=== PATIENT | male | born 1990 | race Caucasian/White ===

== ENCOUNTER 2016-12-30 01:07 | Emergency (ER) | payer OTHER, SELFPAY ==
--- NOTE | 2016-12-30 01:12 | EDM.PDOC ---
ED HPI GENERAL MEDICAL PROBLEM - General Stated Complaint: THROWING UP BLOOD Time Seen by Provider: 12/30/16 01:11 Source of Information: Reports: Patient History Limitations: Reports: No Limitations - History of Present Illness INITIAL COMMENTS - FREE TEXT/NARRATIVE: HISTORY AND PHYSICAL: History of present illness: [26-year-old male with a past medical history of frequent alcohol use and abuse now presents emergency department not feeling well and feeling very anxious one day after drinking 20 shots of whiskey. Patient states he hasn't felt well all day and he had some nausea. Since he had nausea and try to make himself vomit by sticking his finger down his throat. Patient then thinks he saw tinge of blood in his vomitus however he did not vomit jennifer blood. He has no history of bleeding doesn't take anticoagulants no history of upper GI bleed. He is very anxious about his medical condition. Patient wasn't feeling well he has an extensive history of anxiety and is not on any antianxiety medication. Because he was worried he looked online and then became more worried with the information that he found. So he came to the emergency department in the middle the night for evaluation. No SI or HI intentional overdose or self injury Review of systems: As per history of present illness and below otherwise all systems reviewed and negative. Past medical history: As per history of present illness and as reviewed below otherwise noncontributory. Surgical history: As per history of present illness and as reviewed below otherwise noncontributory. Social history: No reported history of drug or alcohol abuse. Family history: As per history of present illness and as reviewed below otherwise noncontributory. Physical exam: Well-appearing patient he is clearly anxious. Patient spit up some clear vomit only was here with no blood. Mild tachycardia HEENT: Atraumatic, normocephalic, pupils reactive, negative for conjunctival pallor or scleral icterus, mucous membranes moist, throat clear, neck supple, nontender, trachea midline. Lungs: Clear to auscultation, breath sounds equal bilaterally, chest nontender. Heart: S1S2, regular, negative for clicks, rubs, or JVD. Abdomen: Soft, nondistended, nontender. Negative for masses or hepatosplenomegaly. Negative for costovertebral tenderness. Pelvis: Stable nontender. Genitourinary: Deferred. Rectal: Deferred. Extremities: Atraumatic, negative for cords or calf pain. Neurovascular unremarkable. Neuro: Awake, alert, oriented. Cranial nerves II through XII unremarkable. Cerebellum unremarkable. Motor and sensory unremarkable throughout. Exam nonfocal. Diagnostics: [Chest x-ray unremarkable interpreted by me EKG normal sinus tachycardia at 105. White blood cell count elevated at 13.3 nonspecific Therapeutics: [IV fluids, Protonix, Ativan, Zofran] Impression: [Hangover Anxiety Alcohol abuse Gastritis Leukocytosis] Plan: [Signs and symptoms consistent with hangover and anxiety in the setting of recent heavy alcohol use. Mild tachycardia improved with IV fluids. Tachycardia resolved prior to discharge. patient is a very clearly contributory anxiety component to his presentation.] As are unremarkable except for mildly elevated white blood cell count 13.3 which is nonspecific. Chest x-ray and EKG benign. No further workup or treatment is indicated at this time. Patient agrees with outpatient follow-up. Strict return precautions given Definitive disposition and diagnosis as appropriate pending reevaluation and review of above. abdominal pain Pain Score (Numeric/FACES): 7 - Related Data Allergies Allergy/AdvReac Type Severity Reaction Status Date / Time No Known Allergies Allergy Verified 12/30/16 01:27 Home Meds: Home Meds . [No Known Home Meds] 12/30/16 [History] ED ROS GENERAL - Review of Systems Review Of Systems: See Below (History of present illness) ED EXAM, GENERAL - Physical Exam Exam: See Below (History of present illness) Course - Vital Signs Last Recorded V/S: Last Vital Signs Temp 36.4 C 12/30/16 01:28 Pulse 124 H 12/30/16 01:28 Resp 20 12/30/16 01:28 BP 164/110 H 12/30/16 01:28 Pulse Ox 98 12/30/16 01:28 - Orders/Labs/Meds Orders: Active Orders 24 hr Category Date Time Status EKG Documentation Completion [RC] STAT Care 12/30/16 02:21 Active Chest 1V Frontal [CR] Stat Exams 12/30/16 02:08 Taken Sodium Chloride 0.9% [Normal Saline] 2,000 ml Med 12/30/16 01:50 Active IV .Bolus Sodium Chloride 0.9% [Saline Flush] Med 12/30/16 02:18 Active 10 ml FLUSH ASDIRECTED PRN Sodium Chloride 0.9% [Saline Flush] Med 12/30/16 02:18 Active 2.5 ml FLUSH ASDIRECTED PRN Peripheral IV Insertion Adult [OM.PC] Stat Oth 12/30/16 02:19 Ordered Medication Orders Sodium Chloride (Normal Saline) 2,000 mls @ 999 mls/hr IV .Bolus ONE Stop: 12/30/16 03:50 Last Admin: 12/30/16 02:01 Dose: 999 mls/hr Sodium Chloride (Saline Flush) 10 ml FLUSH ASDIRECTED PRN PRN Reason: Keep Vein Open Last Admin: 12/30/16 02:22 Dose: 10 ml Sodium Chloride (Saline Flush) 2.5 ml FLUSH ASDIRECTED PRN PRN Reason: Keep Vein Open Last Admin: 12/30/16 02:22 Dose: 2.5 ml Labs: Laboratory Tests 12/30/16 12/30/16 12/30/16 Range/Units 01:55 02:00 02:35 WBC 13.31 H (4.0-11.0) K/uL RBC 5.17 (4.50-5.90) M/uL Hgb 15.4 (13.0-17.0) g/dL Hct 44.1 (38.0-50.0) % MCV 85.3 (80.0-98.0) fL MCH 29.8 (27.0-32.0) pg MCHC 34.9 (31.0-37.0) g/dL RDW Std Deviation 41.0 (28.0-62.0) fl RDW Coeff of Josefa 13 (11.0-15.0) % Plt Count 227 (150-400) K/uL MPV 9.70 (7.40-12.00) fL Neut % (Auto) 79.3 (48.0-80.0) % Lymph % (Auto) 14.4 L (16.0-40.0) % Castro % (Auto) 6.1 (0.0-15.0) % Eos % (Auto) 0.0 (0.0-7.0) % Baso % (Auto) 0.2 (0.0-1.5) % Neut # (Auto) 10.6 H (1.4-5.7) K/uL Lymph # (Auto) 1.9 (0.6-2.4) K/uL Castro # (Auto) 0.8 (0.0-0.8) K/uL Eos # (Auto) 0.0 (0.0-0.7) K/uL Baso # (Auto) 0.0 (0.0-0.1) K/uL Nucleated RBC % 0.0 /100WBC Nucleated RBCs # 0 K/uL Sodium 135 L (136-146) mmol/L Potassium 3.5 (3.5-5.1) mmol/L Chloride 99 (98-110) mmol/L Carbon Dioxide 22 (21-31) mmol/L BUN 7 (6.0-23.0) mg/dL Creatinine 0.9 (0.6-1.5) mg/dL Est Cr Clr Drug Dosing TNP Estimated GFR (MDRD) > 60.0 ml/min Glucose 120 H (60-110) mg/dL Calcium 8.9 (8.8-10.8) mg/dL Total Bilirubin 0.9 (0.1-1.5) mg/dL AST 31 (5-40) IU/L ALT 37 (8-54) IU/L Alkaline Phosphatase 67 (40-150) Troponin I < 0.10 (0.0-0.29) NG/ML Total Protein 7.8 (6.0-8.0) g/dL Albumin 4.3 (3.5-5.0) g/dL Globulin 3.5 (2.0-3.5) g/dL Albumin/Globulin Ratio 1.2 L (1.3-2.8) Lipase 14 (7-80) U/L Meds: Medications Generic Name Dose Route Start Last Admin Trade Name Freq PRN Reason Stop Dose Admin Sodium Chloride 2,000 mls @ 999 mls/hr 12/30/16 01:50 12/30/16 02:01 Normal Saline IV 12/30/16 03:50 999 mls/hr .Bolus ONE Administration Sodium Chloride 10 ml 12/30/16 02:18 12/30/16 02:22 Saline Flush FLUSH 10 ml ASDIRECTED PRN Administration Keep Vein Open Sodium Chloride 2.5 ml 12/30/16 02:18 12/30/16 02:22 Saline Flush FLUSH 2.5 ml ASDIRECTED PRN Administration Keep Vein Open Discontinued Medications Generic Name Dose Route Start Last Admin Trade Name Rivera PRN Reason Stop Dose Admin Pantoprazole Sodium 40 mg/ 10 mls @ 300 mls/hr 12/30/16 02:46 12/30/16 02:55 Sodium Chloride IVPUSH 12/30/16 02:47 300 mls/hr NOW ONE Administration Lorazepam 1 mg 12/30/16 02:08 12/30/16 02:20 Ativan IVPUSH 12/30/16 02:09 1 mg ONETIME ONE Administration Lorazepam 1 mg 12/30/16 02:47 12/30/16 02:54 Ativan IVPUSH 12/30/16 02:48 1 mg ONETIME ONE Administration Ondansetron HCl 4 mg 12/30/16 02:39 12/30/16 02:55 Zofran IVPUSH 12/30/16 02:40 4 mg ONETIME ONE Administration Departure - Departure Time of Disposition: 03:48 Disposition: Home, Self-Care 01 Condition: Good Clinical Impression: Alcohol abuse, Anxiety, Leukocytosis, Hangover - Discharge Information Instructions: Alcohol Use Disorder Referrals: PCP,None [Primary Care Provider] - Forms: ED Department Discharge Additional Instructions: It appears that you have symptoms of gastritis. This means irritated/acidic stomach in this case from drinking too much alcohol. Take Prilosec or Protonix [id number] as needed. If you do choose to drink alcohol be aware this may aggravate your gastritis. Your Dr. suffering from a hangover from your severe alcohol intake yesterday. This is also complicated by severe anxiety from which you have suffered for a long time. Rest and drink plenty of fluids Follow-up with your Dr. tomorrow for reevaluation and to discuss whether you might benefit from a prescription control anxiety. Return here for new severe or worsening symptoms - My Orders Last 24 Hours: My Active Orders 12/30/16 01:50 Sodium Chloride 0.9% [Normal Saline] 2,000 ml IV .Bolus 12/30/16 02:08 Chest 1V Frontal [CR] Stat 12/30/16 02:18 Sodium Chloride 0.9% [Saline Flush] 10 ml FLUSH ASDIRECTED PRN Sodium Chloride 0.9% [Saline Flush] 2.5 ml FLUSH ASDIRECTED PRN 12/30/16 02:19 Peripheral IV Insertion Adult [OM.PC] Stat 12/30/16 02:21 EKG Documentation Completion [RC] STAT - Assessment/Plan Last 24 Hours: My Active Orders 12/30/16 01:50 Sodium Chloride 0.9% [Normal Saline] 2,000 ml IV .Bolus 12/30/16 02:08 Chest 1V Frontal [CR] Stat 12/30/16 02:18 Sodium Chloride 0.9% [Saline Flush] 10 ml FLUSH ASDIRECTED PRN Sodium Chloride 0.9% [Saline Flush] 2.5 ml FLUSH ASDIRECTED PRN 12/30/16 02:19 Peripheral IV Insertion Adult [OM.PC] Stat 12/30/16 02:21 EKG Documentation Completion [RC] STAT
[2016-12-30] MEDS ORDERED: Sodium Chloride 0.9% 2,000 ML IV ONE (01:50)
[2016-12-30] MEDS ORDERED: LORazepam 2 MG/ML MDV IVPUSH ONE ×2 (02:08→02:47)
[2016-12-30] MEDS ORDERED: Sodium Chloride 0.9% 2.5 ML Syringe FLUSH PRN (02:18)
[2016-12-30] MEDS ORDERED: Sodium Chloride 0.9% 10 ML Syringe FLUSH PRN (02:18)
[2016-12-30] MEDS ORDERED: Ondansetron 4 MG/2 ML SDV IVPUSH ONE (02:39)
[2016-12-30] MEDS ORDERED: Pantoprazole 40 MG in Sodium Chloride 0.9% 10 ML IVPUSH ONE (02:46)
[2016-12-30 02:59] LABS: CHLORIDE,CL 99 mmol/L (98-110); SODIUM,NA 135 mmol/L (136-146)
[2016-12-30 04:22] VITALS: BP 131/83
--- NOTE | 2016-12-30 15:17 | CR ---
EXAM DATE: 12/30/16 PATIENT'S AGE: 26 Patient: YAHIR HENDERSON Facility: [place], [place] Site . Site : 1990 Study: XRay Chest [id number]/7/2017 2:41:34 AM Ordering Physician: Carlton Mosley Final Report: Indication: Tachycardia Technique: Chest 1 view Comparison: None. Findings/Impression: Cardiovascular and mediastinum: Heart size and vasculature are normal in caliber and appearance. Mediastinum is within normal limits. Lungs and pleural space: Lungs are clear. No sign of infiltrate or mass. No sign of pleural effusion. No pneumothorax. Bones and soft tissues: No significant findings. Dictated by Jaki Beavers MD @ Dec 30 2016 3:12AM (Electronic Signature) Report Signed by Proxy. TOR
== END 2016-12-30 04:15 | disposition home or self-care (01) ==
LOC: MW.ED 01:07
DX: F10.129 Alcohol abuse with intoxication, unspecified (principal); K29.70 Gastritis, unspecified, without bleeding; F41.9 Anxiety disorder, unspecified; D72.829 Elevated white blood cell count, unspecified
CPT/HCPCS: 71010; 80053; 83690; 84484; 85025; 93005; 96361; 96374; 96375; 99284; C9113; J2060; J2405; J7040

== ENCOUNTER 2017-01-01 19:26 | Emergency (ER) | payer OTHER, SELFPAY ==
[2017-01-01] MEDS ORDERED: Acetaminophen 325 MG Tab PO ONE (19:49)
[2017-01-01] MEDS ORDERED: Ketorolac 60 MG/2 ML SDV IM ONE (19:49)
--- NOTE | 2017-01-01 19:55 | EDM.PDOC ---
ED HPI GENERAL MEDICAL PROBLEM - General Chief Complaint: Headache Stated Complaint: MIGRAINE Time Seen by Provider: 01/01/17 19:42 - History of Present Illness INITIAL COMMENTS - FREE TEXT/NARRATIVE: HISTORY AND PHYSICAL: History of present illness: The patient is a 26-year-old male who presents with a three-day history of a diffuse headache with a pressure-like sensation who seeks evaluation for same. The patient says the headache came on gradually and is not associated with a fever chills nausea vomiting or other systemic complaints. He has no neurologic changes in his extremities and denies any recent trauma. The patient is worried about his "brain being swollen" and was on the Internet looking up different things and is concerned about a variety of things that he has read about. The patient denies any neck pain sore throat or ear pain. The patient has not taken any medications [id number] to try to help with his headache. The patient comes in drinking water out of a gallon bottle and says he has been hydrating well. The patient was seen here 2 days ago after he had a drinking binge and presented with vomiting and hangover-like symptoms. The patient says that since that time he has been tolerating fluids and has had only one episode of vomiting since and he felt like his headache got worse with the vomiting. It is waxing and waning in intensity and is not consistent. Review of systems: As per history of present illness and below otherwise all systems reviewed and negative. Past medical history: As per history of present illness and as reviewed below otherwise noncontributory. Surgical history: As per history of present illness and as reviewed below otherwise noncontributory. Social history: No reported history of drug or alcohol abuse. Family history: As per history of present illness and as reviewed below otherwise noncontributory. Physical exam: Gen.: Well-developed well-nourished mildly overweight male who is somewhat anxious in his speech in the room with vital signs are stable with the exception of the tachycardia which is consistent with his anxious conversation. He moves easily in the ED without any distress. He is carrying a gallon bottle of water that he was drinking. HEENT: Atraumatic, normocephalic, pupils reactive, patient has no photophobia there is no scalp tenderness facial swelling or facial tenderness, negative for conjunctival pallor or scleral icterus, mucous membranes moist, throat clear, neck supple, nontender, trachea midline. There is no cervical adenopathy or nuchal rigidity appreciated Lungs: Clear to auscultation, breath sounds equal bilaterally, chest nontender. Heart: S1S2, regular rate and rhythm no overt murmurs Abdomen: Soft, nondistended, nontender. NABS Pelvis: Deferred Skin: No evidence of any rashes or lesions no diaphoresis, normal turgor Genitourinary: Deferred. Rectal: Deferred. Extremities: Atraumatic, negative for cords or calf pain. Neurovascular unremarkable. Neuro: Awake, alert, oriented. Cranial nerves II through XII unremarkable. Cerebellum unremarkable. Motor and sensory unremarkable throughout. Exam nonfocal. Back: There are no midline step-offs in his defects of the cervical thoracic or lumbar spine and there is no palpable tenderness in the musculature throughout including the neck. Patient has full range of motion of his neck without defects or deficits Diagnostics: CT scan of the head Therapeutics: Tylenol, patient was offered Toradol but refuses I discussed with the patient at length the CT scan results and that with a lot of his concerns he would need to connect with a primary care physician. The patient's symptomatology and presentation do not mandate any more evaluation or testing for this headache and I advised treatment plans for home. The patient states that he has a appointment in the clinic tomorrow at 9 AM which I advised him to keep Impression: Headache, worried well Definitive disposition and diagnosis as appropriate pending reevaluation and review of above. Headache Pain Score (Numeric/FACES): 7 - Related Data Allergies Allergy/AdvReac Type Severity Reaction Status Date / Time No Known Allergies Allergy Verified 01/01/17 19:41 Home Meds: Home Meds . [No Known Home Meds] 12/30/16 [History] Past Medical History - Past Health History Medical/Surgical History: Denies Medical/Surgical History HEENT History: Reports: None Cardiovascular History: Reports: None Respiratory History: Reports: None Gastrointestinal History: Reports: None Genitourinary History: Reports: None Musculoskeletal History: Reports: None Neurological History: Reports: None Psychiatric History: Reports: None Endocrine/Metabolic History: Reports: None Hematologic History: Reports: None Immunologic History: Reports: None Oncologic (Cancer) History: Reports: None Dermatologic History: Reports: None - Infectious Disease History Infectious Disease History: Reports: None Social & Family History - Family History Family Medical History: Noncontributory - Tobacco Use Smoking Status *Q: Never Smoker Second Hand Smoke Exposure: No - Caffeine Use Caffeine Use: Reports: None - Alcohol Use Days Per Week of Alcohol Use: 4 Number of Drinks Per Day: 10 Total Drinks Per Week: 40 - Recreational Drug Use Recreational Drug Use: No ED ROS GENERAL - Review of Systems Review Of Systems: ROS reveals no pertinent complaints other than HPI. ED EXAM, GENERAL - Physical Exam Exam: See Below (See dictation) Course - Vital Signs Last Recorded V/S: Last Vital Signs Temp 36.8 C 01/01/17 19:33 Pulse 116 H 01/01/17 19:33 Resp 18 01/01/17 19:33 BP 145/91 H 01/01/17 19:33 Pulse Ox 100 01/01/17 19:33 - Orders/Labs/Meds Orders: Active Orders 24 hr Category Date Time Status Head wo Cont [CT] Stat Exams 01/01/17 19:49 Taken Meds: Medications Discontinued Medications Generic Name Dose Route Start Last Admin Trade Name Rivera PRN Reason Stop Dose Admin Acetaminophen 650 mg 01/01/17 19:49 01/01/17 19:59 Tylenol PO 01/01/17 19:50 650 mg NOW ONE Administration Ketorolac Tromethamine 60 mg 01/01/17 19:49 01/01/17 19:59 Toradol IM 01/01/17 19:50 Not Given ONETIME ONE Departure - Departure Time of Disposition: 20:35 Disposition: Home, Self-Care 01 Condition: Good Clinical Impression: Worried well Headache Qualifiers: Headache type: unspecified Headache chronicity pattern: unspecified pattern Intractability: not intractable Qualified Code(s): R51 - Headache - Discharge Information Forms: ED Department Discharge Additional Instructions: The following information is given to patients seen in the emergency department who are being discharged to home. This information is to outline your options for follow-up care. We provide all patients seen in our emergency department with a follow-up referral. The need for follow-up, as well as the timing and circumstances, are variable depending upon the specifics of your emergency department visit. If you don't have a primary care physician on staff, we will provide you with a referral. We always advise you to contact your personal physician following an emergency department visit to inform them of the circumstance of the visit and for follow-up with them and/or the need for any referrals to a consulting specialist. The emergency department will also refer you to a specialist when appropriate. This referral assures that you have the opportunity for followup care with a specialist. All of these measure are taken in an effort to provide you with optimal care, which includes your followup. Under all circumstances we always encourage you to contact your private physician who remains a resource for coordinating your care. When calling for followup care, please make the office aware that this follow-up is from your recent emergency room visit. If for any reason you are refused follow-up, please contact the [facility] emergency department at and ask to speak to the emergency department charge nurse. [facility] Primary care- [place] [address] Please keep your appointment tomorrow morning with primary care. Please use over -the-counter Tylenol or ibuprofen for your headache as well as ice or heating pad as we discussed. Push hydration and return to ER as needed and as discussed. - My Orders Last 24 Hours: My Active Orders 01/01/17 19:49 Head wo Cont [CT] Stat - Assessment/Plan Last 24 Hours: My Active Orders 01/01/17 19:49 Head wo Cont [CT] Stat
[2017-01-01 20:46] VITALS: BP 144/89
--- NOTE | 2017-01-02 11:23 | CT ---
EXAM DATE: 01/01/17 PATIENT'S AGE: 26 Patient: YAHIR HENDERSON Facility: [place], [place] Site . Site : 1990 Study: CT Head WO CONT [id number] 8:11:05 PM Ordering Physician: Naomie Wasserman Final Report: INDICATION: Headache for 4 days. TECHNIQUE: CT head without i.v. contrast. COMPARISON: None FINDINGS: CSF spaces: Within normal limits for age. Brain parenchyma: The brain parenchyma is normal in appearance with preservation of the nguyen-white differentiation. No sign of mass, hemorrhage, or midline shift seen. Skull base and calvarium: The visualized paranasal sinuses are well aerated. The mastoid air cells are clear. The visualized orbits are grossly unremarkable. No skull fractures are seen. IMPRESSION: 1. Negative head CT. Dictated by Patrice Carnes MD @ 01/01/2017 8:20:19 PM Dictated by: Patrice Carnes MD @ 01/01/2017 20:20:23 (Electronic Signature) Report Signed by Proxy. [facility]
== END 2017-01-01 20:44 | disposition home or self-care (01) ==
LOC: MW.ED 19:26
DX: R51 Headache (principal)
CPT/HCPCS: 70450; 99284; A9270; 99283

== ENCOUNTER 2017-03-29 15:46 | Emergency (ER) | payer OTHER, SELFPAY ==
[2017-03-29 16:47] LABS: CHLORIDE,CL 98 mmol/L (98-110); SODIUM,NA 132 mmol/L (136-146)
--- NOTE | 2017-03-29 17:23 | EDM.PDOC ---
ED HPI GENERAL MEDICAL PROBLEM - General Chief Complaint: Headache Stated Complaint: HEADACHE Time Seen by Provider: 03/29/17 16:00 Source of Information: Reports: Patient History Limitations: Reports: No Limitations - History of Present Illness INITIAL COMMENTS - FREE TEXT/NARRATIVE: HISTORY AND PHYSICAL: History of present illness: [Patient comes to the emergency room with the same complaints that he experienced in December prompting him to be evaluated in the ER then. He describes a vague feeling of being outside of his head, that "something is going on in his head", and that something just is not right. He describes a sensation that is uncomfortable when he bends over and stands up quickly. He feels as though his eyes don't track well with his head movements. He states that he attributes all of these symptoms to heavy alcohol use for the past 10 years. Quit drinking ETOH 4 days ago, and is adamant that he is not going to start drinking again. Did not follow up with a local provider as he was instructed at the time of his last ER visit. He denies any headache, head injury or trauma. He has otherwise felt well and like his normal self. No fever or chills. No sore throat or ear pain. No chest pain, shortness of breath or difficulty breathing. No abdominal pain or loss of appetite. No nausea vomiting constipation or diarrhea. He is not having any difficulty urinatin]. No blood in his stools or urine. Admits to feeling anxious and not sleeping well due to his concerns. Review of systems: As per history of present illness and below otherwise all systems reviewed and negative. Past medical history: As per history of present illness and as reviewed below otherwise noncontributory. Surgical history: As per history of present illness and as reviewed below otherwise noncontributory. Social history: No reported history of drug or alcohol abuse. Family history: As per history of present illness and as reviewed below otherwise noncontributory. Physical exam: HEENT: Atraumatic, normocephalic. PERRLA. EOMI. Oral mucous membranes are pink and moist. Throat clear. Neck is supple. Lungs: Clear to auscultation, breath sounds equal bilaterally. Heart: S1S2, regular rate and rhythm. No murmur gallop or rub. Abdomen: Obese, soft, nondistended, nontender. Negative for masses or hepatosplenomegaly. Negative for costovertebral tenderness. Pelvis: Stable nontender. Genitourinary: Deferred. Rectal: Deferred. Extremities: Atraumatic, negative for cords or calf pain. Moves all extremities without difficulty. Ambulatory without difficulty. Neurovascular unremarkable. Neuro: Awake, alert, oriented. Affect is flat and he fails to make good eye contact during conversation. Appears anxious, and paces around exam room. Exam nonfocal. Diagnostics: [CBC, CMP, UA with micro] Impression: [Dehydration Anxiety] Plan: [Labs are reviewed with patient showing a normal UA. With blood cell count 13.7 , sodium 132. All other labs are within normal limits respectively. Discussed with patient and mother the necessity of establishing with a local PCP and following up there for further workup regarding his concerns. They're in agreement with today's plan. They plan to move the patient's appointment from 10 days from now to getting in with the soonest available provider. In the meantime encouraged patient to eat a well-balanced diet, get some exercise every day, and make sure he is drinking plenty of fluids. I strongly believe there is some anxiety and/or psychiatric component involved in this patient's concerns today. His exam again today is completely benign.] Definitive disposition and diagnosis as appropriate pending reevaluation and review of above. headache Pain Score (Numeric/FACES): 10 - Related Data Allergies Allergy/AdvReac Type Severity Reaction Status Date / Time No Known Allergies Allergy Verified 03/29/17 15:53 Home Meds: Home Meds . [No Known Home Meds] 12/30/16 [History] Past Medical History - Past Health History Medical/Surgical History: Denies Medical/Surgical History HEENT History: Reports: None Cardiovascular History: Reports: None Respiratory History: Reports: None Gastrointestinal History: Reports: None Genitourinary History: Reports: None Musculoskeletal History: Reports: None Neurological History: Reports: None Psychiatric History: Reports: None Endocrine/Metabolic History: Reports: None Hematologic History: Reports: None Immunologic History: Reports: None Oncologic (Cancer) History: Reports: None Dermatologic History: Reports: None - Infectious Disease History Infectious Disease History: Reports: None Social & Family History - Family History Family Medical History: Noncontributory - Tobacco Use Smoking Status *Q: Never Smoker Second Hand Smoke Exposure: No - Caffeine Use Caffeine Use: Reports: None - Alcohol Use Days Per Week of Alcohol Use: 4 Number of Drinks Per Day: 10 Total Drinks Per Week: 40 - Recreational Drug Use Recreational Drug Use: No ED ROS GENERAL - Review of Systems Review Of Systems: ROS reveals no pertinent complaints other than HPI. - Physical Exam Exam: See Below Course - Vital Signs Last Recorded V/S: Last Vital Signs Temp 97.2 F 03/29/17 15:53 Pulse Resp 18 03/29/17 15:53 BP Pulse Ox 99 03/29/17 15:53 - Orders/Labs/Meds Orders: Active Orders 24 hr Category Date Time Status UA W/MICROSCOPIC [URIN] Stat Lab 03/29/17 17:33 Results Labs: Laboratory Tests 03/29/17 03/29/17 03/29/17 Range/Units 16:18 16:18 17:33 WBC 13.75 H (4.0-11.0) K/uL RBC 5.09 (4.50-5.90) M/uL Hgb 15.1 (13.0-17.0) g/dL Hct 44.2 (38.0-50.0) % MCV 86.8 (80.0-98.0) fL MCH 29.7 (27.0-32.0) pg MCHC 34.2 (31.0-37.0) g/dL RDW Std Deviation 42.3 (28.0-62.0) fl RDW Coeff of Josefa 13 (11.0-15.0) % Plt Count 249 (150-400) K/uL MPV 10.00 (7.40-12.00) fL Neut % (Auto) 82.6 H (48.0-80.0) % Lymph % (Auto) 11.3 L (16.0-40.0) % [place] % (Auto) 5.4 (0.0-15.0) % Eos % (Auto) 0.4 (0.0-7.0) % Baso % (Auto) 0.3 (0.0-1.5) % Neut # (Auto) 11.4 H (1.4-5.7) K/uL Lymph # (Auto) 1.6 (0.6-2.4) K/uL [place] # (Auto) 0.7 (0.0-0.8) K/uL Eos # (Auto) 0.1 (0.0-0.7) K/uL Baso # (Auto) 0.0 (0.0-0.1) K/uL Nucleated RBC % 0.0 /100WBC Nucleated RBCs # 0 K/uL Sodium 132 L (136-146) mmol/L Potassium 3.8 (3.5-5.1) mmol/L Chloride 98 (98-110) mmol/L Carbon Dioxide 24 (21-31) mmol/L BUN 12 (6.0-23.0) mg/dL Creatinine 1.0 (0.6-1.5) mg/dL Est Cr Clr Drug Dosing 121.79 mL/min Estimated GFR (MDRD) > 60.0 ml/min Glucose 134 H (60-110) mg/dL Calcium 9.8 (8.8-10.8) mg/dL Total Bilirubin 0.7 (0.1-1.5) mg/dL AST 29 (5-40) IU/L ALT 45 (8-54) IU/L Alkaline Phosphatase 71 (40-150) Total Protein 8.6 H (6.0-8.0) g/dL Albumin 4.7 (3.5-5.0) g/dL Globulin 3.9 H (2.0-3.5) g/dL Albumin/Globulin Ratio 1.2 L (1.3-2.8) Urine Color YELLOW Urine Appearance CLEAR Urine pH 6.5 (5.0-8.0) Ur Specific [place] <= 1.005 (1.001-1.035) Urine Protein NEGATIVE (NEGATIVE) mg/dL Urine Glucose (UA) NEGATIVE (NEGATIVE) mg/dL Urine Ketones NEGATIVE (NEGATIVE) mg/dL Urine Occult Blood NEGATIVE (NEGATIVE) Urine Nitrite NEGATIVE (NEGATIVE) Urine Bilirubin NEGATIVE (NEGATIVE) Urine Urobilinogen 0.2 (<2.0) EU/dL Ur Leukocyte Esterase NEGATIVE (NEGATIVE) Departure - Departure Time of Disposition: 18:06 Disposition: Home, Self-Care 01 Condition: Good Clinical Impression: Dehydration - Discharge Information Referrals: PCP,Unknown [Primary Care Provider] - Forms: ED Department Discharge Additional Instructions: The following information is given to patients seen in the emergency department who are being discharged to home. This information is to outline your options for follow-up care. We provide all patients seen in our emergency department with a follow-up referral. The need for follow-up, as well as the timing and circumstances, are variable depending upon the specifics of your emergency department visit. If you don't have a primary care physician on staff, we will provide you with a referral. We always advise you to contact your personal physician following an emergency department visit to inform them of the circumstance of the visit and for follow-up with them and/or the need for any referrals to a consulting specialist. The emergency department will also refer you to a specialist when appropriate. This referral assures that you have the opportunity for follow-up care with a specialist. All of these measure are taken in an effort to provide you with optimal care, which includes your follow-up. Under all circumstances we always encourage you to contact your private physician who remains a resource for coordinating your care. When calling for follow-up care, please make the office aware that this follow-up is from your recent emergency room visit. If for any reason you are refused follow-up, please contact the [facility] emergency department at and asked to speak to the emergency department charge nurse. [facility] [address] [place] [address] Follow-up with the primary care provider at the clinic listed above in the next 2-3 days. A chair getting plenty of fluids and a well-balanced diet. Return to ER as needed as discussed. - My Orders Last 24 Hours: My Active Orders 03/29/17 17:33 UA W/MICROSCOPIC [URIN] Stat - Assessment/Plan Last 24 Hours: My Active Orders 03/29/17 17:33 UA W/MICROSCOPIC [URIN] Stat
== END 2017-03-29 18:13 | disposition home or self-care (01) ==
LOC: MW.ED 15:46
DX: E86.0 Dehydration (principal); F41.9 Anxiety disorder, unspecified
CPT/HCPCS: 36415; 80053; 81001; 85025; 99283

== ENCOUNTER 2017-08-08 04:56 | Emergency (ER) | payer MEDICAID, OTHER, SELFPAY ==
[2017-08-08] MEDS ORDERED: Lidocaine 1% 20 ML MDV INJECT ONE (05:09)
[2017-08-08] MEDS ORDERED: Diphtheria,Pertussis(Acell),Tetanus Vaccine 0.5 ML Syringe IM ONE (05:10)
--- NOTE | 2017-08-08 05:16 | EDM.PDOC ---
ED HPI GENERAL MEDICAL PROBLEM - General Stated Complaint: CUT LEFT HAND Time Seen by Provider: 08/08/17 05:05 Source of Information: Reports: Patient History Limitations: Reports: No Limitations - History of Present Illness INITIAL COMMENTS - FREE TEXT/NARRATIVE: HISTORY AND PHYSICAL: History of present illness: [26-year-old male presenting to emergency department with laceration to left hand. Patient states that he was opening an aluminum can of [employer] and when he left the tab edge of the lid sliced him on his left hand between the first and second digit. [place] immediate pain and there was copious amounts of bleeding. States that he tried to hold pressure on it for the past hour and a half but every time he moves and discharge bleeding again. He denies any loss of sensation or range of motion. Patient is unsure of his last tetanus and is unsure if he wants up. On examination there is a 2.5 cm laceration perpendicular to the first and second in intrigus area between the digits. There is no tendon involvement and neurovascular is intact. ] Review of systems: As per history of present illness and below otherwise all systems reviewed and negative. Past medical history: As per history of present illness and as reviewed below otherwise noncontributory. Surgical history: As per history of present illness and as reviewed below otherwise noncontributory. Social history: No reported history of drug or alcohol abuse. Family history: As per history of present illness and as reviewed below otherwise noncontributory. Physical exam: HEENT: Atraumatic, normocephalic, pupils reactive, negative for conjunctival pallor or scleral icterus, mucous membranes moist, throat clear, neck supple, nontender, trachea midline. Lungs: Clear to auscultation, breath sounds equal bilaterally, chest nontender. Heart: S1S2, regular, negative for clicks, rubs, or JVD. Abdomen: Soft, nondistended, nontender. Negative for masses or hepatosplenomegaly. Negative for costovertebral tenderness. Pelvis: Stable nontender. Genitourinary: Deferred. Rectal: Deferred. Extremities: 2.5 cm laceration between first and second digit mostly in the [place] aspect of the hand, negative for cords or calf pain. Neurovascular unremarkable. Neuro: Awake, alert, oriented. Cranial nerves II through XII unremarkable. Cerebellum unremarkable. Motor and sensory unremarkable throughout. Exam nonfocal. Diagnostics: [] Therapeutics: [Lidocaine, 4 mattress 5-0 ethilon sutures ] Impression: [Laceration] Plan: [On examination there was a 2.5 cm laceration perpendicular to the first and second intrigus areas between the Left 1st and 2nd digits. Area was cleaned thoroughly and 2 mL of 1% lidocaine was injected for analgesia. Under standard sterile precautions laceration was repaired with 4 mattress sutures using 5-0 Ethilon thread. He tolerated procedure well and there were no complications. Area was cleaned once again and bandaged. Patient was instructed to leave sutures in place for 10-14 days before removal. He was also instructed to follow -up with his primary care physician or return to emergency department for suture removal. Patient was also prescribed TDap secondary to unknown history of last tetanus. He was instructed to use ibuprofen and Tylenol for pain and inflammation, keep area clean and dry with daily dressing changes, and watch for signs of infection including but not limited to increased pain, erythema, swelling, purulent drainage. Patient was discharged in good condition. ] - Related Data Allergies Allergy/AdvReac Type Severity Reaction Status Date / Time No Known Allergies Allergy Verified 03/29/17 15:53 Home Meds: Home Meds . [No Known Home Meds] 12/30/16 [History] Past Medical History - Past Health History Medical/Surgical History: Denies Medical/Surgical History HEENT History: Reports: None Cardiovascular History: Reports: None Respiratory History: Reports: None Gastrointestinal History: Reports: None Genitourinary History: Reports: None Musculoskeletal History: Reports: None Neurological History: Reports: None Psychiatric History: Reports: None Endocrine/Metabolic History: Reports: None Hematologic History: Reports: None Immunologic History: Reports: None Oncologic (Cancer) History: Reports: None Dermatologic History: Reports: None - Infectious Disease History Infectious Disease History: Reports: None Social & Family History - Family History Family Medical History: Noncontributory - Tobacco Use Smoking Status *Q: Never Smoker Second Hand Smoke Exposure: No - Caffeine Use Caffeine Use: Reports: None - Alcohol Use Days Per Week of Alcohol Use: 4 Number of Drinks Per Day: 10 Total Drinks Per Week: 40 - Recreational Drug Use Recreational Drug Use: No ED ROS GENERAL - Review of Systems Review Of Systems: See Below ED EXAM, GENERAL - Physical Exam Exam: See Below Course - Vital Signs Last Recorded V/S: Last Vital Signs Temp 98.2 F 08/08/17 05:17 Pulse 117 H 08/08/17 05:17 Resp 15 08/08/17 05:17 BP 150/104 H 08/08/17 05:17 Pulse Ox 96 08/08/17 05:17 - Orders/Labs/Meds Orders: Active Orders 24 hr Category Date Time Status Vaccines to be Administered [RC] PER UNIT ROUTINE Care 08/08/17 05:10 Ordered Meds: Medications Discontinued Medications Generic Name Dose Route Start Last Admin Trade Name Rivera PRN Reason Stop Dose Admin Diphtheria/Tetanus/Acell Pertussis 0.5 ml 08/08/17 05:10 Adacel IM 08/08/17 05:11 .ONCE ONE Lidocaine HCl 20 ml 08/08/17 05:09 Xylocaine 1% INJECT 08/08/17 05:10 ONETIME ONE Departure - Departure Time of Disposition: 05:49 Disposition: Home, Self-Care 01 Condition: Good Clinical Impression: Laceration of left hand - Discharge Information Additional Instructions: My general discharge The following information is given to patients seen in the emergency department who are being discharged to home. This information is to outline your options for follow-up care. We provide all patients seen in our emergency department with a follow-up referral. The need for follow-up, as well as the timing and circumstances, are variable depending upon the specifics of your emergency department visit. If you don't have a primary care physician on staff, we will provide you with a referral. We always advise you to contact your personal physician following an emergency department visit to inform them of the circumstance of the visit and for follow-up with them and/or the need for any referrals to a consulting specialist. The emergency department will also refer you to a specialist when appropriate. This referral assures that you have the opportunity for follow-up care with a specialist. All of these measure are taken in an effort to provide you with optimal care, which includes your follow-up. Under all circumstances we always encourage you to contact your private physician who remains a resource for coordinating your care. When calling for follow-up care, please make the office aware that this follow-up is from your recent emergency room visit. If for any reason you are refused follow-up, please contact the [facility] Emergency Department at and asked to speak to the emergency department charge nurse. BRETT [facility] [address] [place] [id number] - My Orders Last 24 Hours: My Active Orders 08/08/17 05:10 Vaccines to be Administered [RC] PER UNIT ROUTINE - Assessment/Plan Last 24 Hours: My Active Orders 08/08/17 05:10 Vaccines to be Administered [RC] PER UNIT ROUTINE
[2017-08-08 06:29] VITALS: BP 143/97
== END 2017-08-08 06:12 | disposition home or self-care (01) ==
LOC: MW.ED 04:56
DX: S61.412A Laceration without foreign body of left hand, initial encounter (principal); Z23 Encounter for immunization; W26.8XXA Contact with other sharp object(s), not elsewhere classified, initial encounter
CPT/HCPCS: 12001; 90471; 90715; 99282; 99282-25

== ENCOUNTER 2019-12-01 21:43 | Emergency (ER) | payer MEDICAID ==
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
--- NOTE | 2019-12-01 22:32 | CR ---
Left hand: 3 views left hand were obtained. Comparison: No previous hand study. Oblique fracture is identified involving the mid and proximal aspects of the 4th metacarpal. Displacement is noted up to 2 mm. No additional fracture or other bony abnormality is seen. Impression: 1. Minimally displaced fracture within the 4th metacarpal as noted above. Diagnostic code #3 This report was dictated in MDT
[2019-12-01 23:37] VITALS: BP 158/99; PULSE 109
== END 2019-12-01 23:35 | disposition home or self-care (01) ==
LOC: MW.ED 21:43
DX: S62.325A Displaced fracture of shaft of fourth metacarpal bone, left hand, initial encounter for closed fracture (principal); Y04.0XXA Assault by unarmed brawl or fight, initial encounter; Y93.72 Activity, wrestling
CPT/HCPCS: 29125; 73130-26-LT; 73130-LT; 99282; 99283-25

== ENCOUNTER 2019-12-02 13:04 | Emergency (ER) | payer MEDICAID ==
[2019-12-02 13:36] VITALS: BP 136/118; PULSE 93
--- NOTE | 2019-12-02 13:47 | EDM.PDOC ---
ED HPI GENERAL MEDICAL PROBLEM - General Chief Complaint: Upper Extremity Injury/Pain Stated Complaint: PAIN IN LT ARM Time Seen by Provider: 12/02/19 13:35 - History of Present Illness INITIAL COMMENTS - FREE TEXT/NARRATIVE: History of present illness: Patient returns to the ED after breaking his hand and being seen last night he apparently was discharged without any pain medication he is now having significant pain in his hand where his fracture is he is already arranged follow-up tomorrow in my not with orthopedics and he has loosened his splint with concerns it might be too tight already but he is still having pain in the hand is requesting some pain medications no allergies no other medical problems no other complaints. Review of systems: As per history of present illness and below otherwise all systems reviewed and negative. Past medical history: As per history of present illness and as reviewed below otherwise noncontributory. Surgical history: As per history of present illness and as reviewed below otherwise noncontributory. Social history: No reported history of drug or alcohol abuse. Family history: As per history of present illness and as reviewed below otherwise noncontributory. Physical exam: HEENT: Atraumatic, normocephalic, pupils reactive, negative for conjunctival pallor or scleral icterus, mucous membranes moist, throat clear, neck supple, nontender, trachea midline. Lungs: Clear to auscultation, breath sounds equal bilaterally, chest nontender. Heart: S1S2, regular, negative for clicks, rubs, or JVD. Abdomen: Soft, nondistended, nontender. Negative for masses or hepatosplen omegaly. Negative for costovertebral tenderness. Pelvis: Stable nontender. Genitourinary: Deferred. Rectal: Deferred. Extremities: Atraumatic, negative for cords or calf pain. Neurovascular unremarkable. Distal capillary refill sensation intact the splint does not appear to be too tight Neuro: Awake, alert, oriented. Cranial nerves II through XII unremarkable. Cerebellum unremarkable. Motor and sensory unremarkable throughout. Exam nonfocal. Diagnostics: [] Therapeutics: [] Impression: Left fourth metacarpal fracture [] Plan: I removed the splint and resplinted the patient for comfort. I will write him some Pollock and some naproxen. He is already arranged follow-up. [] Definitive disposition and diagnosis as appropriate pending reevaluation and review of above. Left Hand Pain Score (Numeric/FACES): 8 - Related Data Allergies Allergy/AdvReac Type Severity Reaction Status Date / Time No Known Allergies Allergy Verified 12/02/19 13:35 Home Meds: Home Meds Acetaminophen/HYDROcodone [Pollock 325-5 MG] 1 tab PO Q6H #12 tablet 12/02/19 [Rx] Naproxen [Naprosyn] 500 mg PO Q12HR #20 tab 12/02/19 [Rx] Past Medical History - Past Health History Medical/Surgical History: Denies Medical/Surgical History HEENT History: Reports: None Cardiovascular History: Reports: None Respiratory History: Reports: None Gastrointestinal History: Reports: None Genitourinary History: Reports: None Musculoskeletal History: Reports: None Neurological History: Reports: None Psychiatric History: Reports: None Endocrine/Metabolic History: Reports: None Hematologic History: Reports: None Immunologic History: Reports: None Oncologic (Cancer) History: Reports: None Dermatologic History: Reports: None - Infectious Disease History Infectious Disease History: Reports: None Social & Family History - Family History Family Medical History: Noncontributory HEENT: Reports: None Cardiac: Reports: None Respiratory: Reports: None GI: Reports: None : Reports: None OBGYN: Reports: None Musculoskeletal: Reports: None Neurological: Reports: None Psychiatric: Reports: None Endocrine/Metabolic: Reports: None Hematologic: Reports: None Immunologic: Reports: None Dermatologic: Reports: None Oncologic: Reports: None - Tobacco Use Smoking Status *Q: Current Some Day Smoker Years of Tobacco use: 0 Packs/Tins Daily: 0 - Caffeine Use Caffeine Use: Reports: None - Recreational Drug Use Recreational Drug Use: No Review of Systems - Review of Systems Review Of Systems: See Below ED EXAM, GENERAL - Physical Exam Exam: See Below Course - Vital Signs Last Recorded V/S: Last Vital Signs Temp 36.2 C 12/02/19 13:30 Pulse 93 12/02/19 13:30 Resp 18 12/02/19 13:30 BP 136/118 H 12/02/19 13:30 Pulse Ox 98 12/02/19 13:30 Departure - Departure Time of Disposition: 13:45 Disposition: Home, Self-Care 01 Condition: Good Clinical Impression: Fracture of metacarpal - Discharge Information *PRESCRIPTION DRUG MONITORING PROGRAM REVIEWED*: Not Applicable *COPY OF PRESCRIPTION DRUG MONITORING REPORT IN PATIENT MICHI: Not Applicable Prescriptions: Naproxen [Naprosyn] 500 mg PO Q12HR #20 tab Acetaminophen/HYDROcodone [Pollock 325-5 MG] 1 tab PO Q6H #12 tablet Instructions: Cast or Splint Care, Adult, [id number], Metacarpal Fracture Referrals: PCP,None [Primary Care Provider] - Additional Instructions: The following information is given to patients seen in the emergency department who are being discharged to home. This information is to outline your options for follow-up care. We provide all patients seen in our emergency department with a follow-up referral. The need for follow-up, as well as the timing and circumstances, are variable depending upon the specifics of your emergency department visit. If you don't have a primary care physician on staff, we will provide you with a referral. We always advise you to contact your personal physician following an emergency department visit to inform them of the circumstance of the visit and for follow-up with them and/or the need for any referrals to a consulting specialist. The emergency department will also refer you to a specialist when appropriate. This referral assures that you have the opportunity for follow-up care with a specialist. All of these measure are taken in an effort to provide you with optimal care, which includes your follow-up. Under all circumstances we always encourage you to contact your private physician who remains a resource for coordinating your care. When calling for follow-up care, please make the office aware that this follow-up is from your recent emergency room visit. If for any reason you are refused follow-up, please contact the [facility] Emergency Department at and asked to speak to the emergency department charge nurse. [facility] - [facility] Professional Building [address] [place] [address], [address] [place] [address] Sepsis Event Note (ED) - Evaluation Sepsis Screening Result: No Definite Risk - Focused Exam Vital Signs: Vital Signs Temp Pulse Resp BP Pulse Ox 12/02/19 13:30 36.2 C 93 18 136/118 H 98
== END 2019-12-02 14:18 | disposition home or self-care (01) ==
LOC: MW.ED 13:04
DX: S62.305A Unspecified fracture of fourth metacarpal bone, left hand, initial encounter for closed fracture (principal); F17.200 Nicotine dependence, unspecified, uncomplicated; Y04.0XXA Assault by unarmed brawl or fight, initial encounter
CPT/HCPCS: 29125; 99283; 99283-25

== ENCOUNTER 2021-06-05 16:59 | Emergency (ER) | payer MEDICAID ==
--- NOTE | 2021-06-05 19:19 | EDM.PDOC ---
ED HPI GENERAL MEDICAL PROBLEM - General Chief Complaint: General Stated Complaint: "SICK" Time Seen by Provider: 06/05/21 18:20 Source of Information: Reports: Patient History Limitations: Reports: No Limitations - History of Present Illness INITIAL COMMENTS - FREE TEXT/NARRATIVE: HISTORY AND PHYSICAL: History of present illness: Patient is a 30-year-old male who presents to the emergency room with complaints of chest/nasal congestion and cough x 2days. Patient states he is hung over today as he did drink fairly heavily last night. Has had nausea and vomiting. Unsure if it's related to his URI symptoms or due to his excessive drinking. Patient denies any fever, chills, headache, change in vision, syncope or near syncope. Denies any chest pain, back pain, shortness of breath, abdominal pain, diarrhea, constipation or dysuria. Has not noted any blood in urine or stool. Patient has been eating and drinking appropriately. No recent travel or sick contacts. Review of systems: As per history of present illness and below otherwise all systems reviewed and negative. Past medical history: As per history of present illness and as reviewed below otherwise noncontri butory. Surgical history: As per history of present illness and as reviewed below otherwise noncontributory. Social history: See social history for further information Family history: As per history of present illness and as reviewed below otherwise noncontributory. Physical exam: General: Well developed and well nourished 30 year old male. Alert and orientated x 3. Nontoxic in appearance and in no acute distress. Vital signs are stable and have been reviewed by me. Nursing notes were reviewed. HEENT: Atraumatic, normocephalic, pupils equal and reactive bilaterally, negative for conjunctival pallor or scleral icterus, mucous membranes moist, TMs normal bilaterally, throat clear, neck supple, nontender, trachea midline. No drooling or trismus noted. No meningeal signs. No hot potato voice noted. Lungs: Clear to auscultation bilaterally. No wheezes, rales, or rhonchi. Chest nontender. Normal work of breathing, no accessory muscles used. Heart: S1S2, regular rate and rhythm without overt murmur, gallops, or rubs. No JVD. No peripheral edema Abdomen: Soft, nondistended, nontender. Normoactive bowel sounds. Negative for masses or costovertebral tenderness. Skin: Intact, warm, dry. No lesions or rashes noted. Hematologic: No petechiae or purpra. Mucosa appropriate color and normal nail bed color and refill. Extremities: Atraumatic, moves all extremities per self without difficulty or deficits, negative for cords or calf pain. Neurovascular unremarkable. Neuro: Awake, alert, oriented. Cranial nerves II through XII unremarkable. Cerebellum unremarkable. Motor and sensory unremarkable throughout. Exam nonfocal. Psychiatric: Mood and affect are appropriate. Normal thought process. Answering questions appropriately. Please note that the patient was seen and evaluated during the 2019 SARS-CoV-2 novel coronavirus pandemic period. Community viral transmission is ongoing at time of this encounter and the emergency department is operating under pandemic response procedures. Medical Decision Making: Patient is a 30-year-old male who presents to the emergency room with complaints of nasal and chest congestion with cough x2 days. Patient has a secondary complaint is feeling hung over stating he drank fairly heavily last evening and has had nausea and vomiting. Patient states his main complaint is his concern for COVID-19. We will swab for COVID and influenza and do a chest x-ray. We will give him Zofran while here and do a PO challenge. His abdomen is soft and nontender. Successful PO challenge. Chest x-ray is unremarkable. Patient is positive for COVID-19. I have talked with the patient about today's findings, in addition to providing specific details for plan of care. Reassessment at the time of disposition demonstrates that the patient is in no acute distress. The patient is stable for discharge, counseling was provided and we discussed in great detail signs and symptoms that would prompt them to return to the Emergency Department. Medication, follow up and supportive care measures were reviewed and discussed. Voices understanding and is agreeable to plan of care. Denies any further questions or concerns at this time. Diagnostics: COVID/influenza, [employer]: Zofran Prescription: Zofran Impression: COVID-19 Plan: 1. You were evaluated today on an emergent basis. Your COVID-19 screening is positive. That means you do have the coronavirus and you are considered contagious. Your vital signs and oxygen saturation are well enough that you were able to monitor your symptoms at home. Continue to monitor for trouble breathing, new confusion or inability to arouse, bluish lips or face or any of the other symptoms we discussed -if this occurs please return to the emergency room immediately. 2. Please self quarantine until cleared by [facility]. Inform any persons that you have been in contact with since you started becoming symptomatic that you have tested positive; they should be made aware and take the appropriate steps as needed. 3. You can take NyQuil during the evening to help get a restful night sleep. May alternate Tylenol and ibuprofen as needed for pain and fever management. 4. The [facility] department will be calling you and following up with you. The [place] [employer] Hotline phone number , They are open Friday - Friday 7am - 7pm. Follow up with your primary care provider for re-evaluation as directed. Definitive disposition and diagnosis as appropriate pending reevaluation and review of above. Headache Pain Score (Numeric/FACES): 10 - Related Data Allergies Allergy/AdvReac Type Severity Reaction Status Date / Time No Known Allergies Allergy Verified 06/05/21 19:23 Home Meds: Home Meds Ondansetron [Zofran ODT] 4 mg PO Q6H PRN #8 tab.dis 06/05/21 [Rx] Past Medical History - Past Health History Medical/Surgical History: Denies Medical/Surgical History HEENT History: Reports: None Cardiovascular History: Reports: None Respiratory History: Reports: None Gastrointestinal History: Reports: None Genitourinary History: Reports: None Musculoskeletal History: Reports: None Neurological History: Reports: None Psychiatric History: Reports: None Endocrine/Metabolic History: Reports: None Hematologic History: Reports: None Immunologic History: Reports: None Oncologic (Cancer) History: Reports: None Dermatologic History: Reports: None - Infectious Disease History Infectious Disease History: Reports: None Social & Family History - Family History Family Medical History: No Pertinent Family History HEENT: Reports: None Cardiac: Reports: None Respiratory: Reports: None GI: Reports: None : Reports: None OBGYN: Reports: None Musculoskeletal: Reports: None Neurological: Reports: None Psychiatric: Reports: None Endocrine/Metabolic: Reports: None Hematologic: Reports: None Immunologic: Reports: None Dermatologic: Reports: None Oncologic: Reports: None - Caffeine Use Caffeine Use: Reports: None ED ROS GENERAL - Review of Systems Review Of Systems: Comprehensive ROS is negative, except as noted in HPI. ED EXAM, GENERAL - Physical Exam Exam: See Below (See dictation) Course - Vital Signs Last Recorded V/S: Last Vital Signs Temp 96.9 F 06/05/21 19:14 Pulse 108 H 06/05/21 19:14 Resp 18 06/05/21 19:14 BP 152/94 H 06/05/21 19:14 Pulse Ox 100 06/05/21 19:14 - Orders/Labs/Meds Orders: Active Orders 24 hr Category Date Time Status Communication Order [RC] STAT Care 06/05/21 20:01 Active Labs: Laboratory Tests 06/05/21 Range/Units 19:25 Influenza Type A RNA NEGATIVE (NEGATIVE) Influenza Type B RNA NEGATIVE (NEGATIVE) SARS-CoV-2 RNA (OLGA) POSITIVE H (NEGATIVE) Meds: Medications Discontinued Medications Generic Name Dose Route Start Last Admin Trade Name Freq PRN Reason Stop Dose Admin Ondansetron HCl 4 mg 06/05/21 19:24 06/05/21 20:05 Ondansetron 4 Mg Tab.Dis PO 06/05/21 19:25 4 mg ONETIME ONE Administration Departure - Departure Time of Disposition: 20:29 Disposition: Home, Self-Care 01 Clinical Impression: COVID-19 - Discharge Information Prescriptions: Ondansetron [Zofran ODT] 4 mg PO Q6H PRN #8 tab.dis PRN Reason: Nausea Instructions: 10 Things You Can Do to Manage Your COVID-19 Symptoms at Home - [facility] (12/08/2020) Forms: ED Department Discharge Additional Instructions: The following information is given to patients seen in the emergency department who are being discharged to home. This information is to outline your options for follow-up care. We provide all patients seen in our emergency department with a follow-up referral. The need for follow-up, as well as the timing and circumstances, are variable depending upon the specifics of your emergency department visit. If you don't have a primary care physician on staff, we will provide you with a referral. We always advise you to contact your personal physician following an emergency department visit to inform them of the circumstance of the visit and for follow-up with them and/or the need for any referrals to a consulting specialist. The emergency department will also refer you to a specialist when appropriate. This referral assures that you have the opportunity for follow-up care with a specialist. All of these measure are taken in an effort to provide you with optimal care, which includes your follow-up. Under all circumstances we always encourage you to contact your private physician who remains a resource for coordinating your care. When calling for follow-up care, please make the office aware that this follow-up is from your recent emergency room visit. If for any reason you are refused follow-up, please contact the [facility] Emergency Department at and asked to speak to the emergency department charge nurse. [facility] [address] [place] [id number] [facility] [address] [place] [phone] Thank you for choosing the [facility] emergency department in [place] for your medical needs today. It was a pleasure caring for you. Today you were seen in the emergency department for nausea, vomiting and COVID type symptoms Your prescription was electronically sent to: [place] pharmacy Medication/Directions: Zofran for nausea 1. You were evaluated today on an emergent basis. Your COVID-19 screening is positive. That means you do have the coronavirus and you are considered contagious. Your vital signs and oxygen saturation are well enough that you were able to monitor your symptoms at home. Continue to monitor for trouble breathing, new confusion or inability to arouse, bluish lips or face or any of the other symptoms we discussed -if this occurs please return to the emergency room immediately. 2. Please self quarantine until cleared by [facility] Department. Inform any persons that you have been in contact with since you started becoming symptomatic that you have tested positive; they should be made aware and take the appropriate steps as needed. 3. You can take NyQuil during the evening to help get a restful night sleep. May alternate Tylenol and ibuprofen as needed for pain and fever management. 4. The [facility] department will be calling you and following up with you. The [place] COVID 19 Hotline phone number , They are open Friday - Friday 7am - 7pm. Follow up with your primary care provider for re-evaluation as directed. Sepsis Event Note (ED) - Focused Exam Vital Signs: Vital Signs Temp Pulse Resp BP Pulse Ox 06/05/21 19:14 96.9 F 108 H 18 152/94 H 100 - My Orders Last 24 Hours: My Active Orders 06/05/21 20:01 Communication Order [RC] STAT - Assessment/Plan Last 24 Hours: My Active Orders 06/05/21 20:01 Communication Order [RC] STAT
[2021-06-05 19:23] VITALS: BP 152/94; PULSE 108
[2021-06-05] MEDS ORDERED: Ondansetron 4 MG Tab.DIS PO ONE (19:24)
--- NOTE | 2021-06-05 19:54 | CR ---
INDICATION: PAIN/SOB TECHNIQUE: Chest 1 view. COMPARISON: 12/13/19 FINDINGS: Cardiovascular and mediastinum: Heart size and vasculature are normal in caliber and appearance. Mediastinum is within normal limits. Lungs and pleural space: Lungs are clear. No sign of infiltrate or mass. No sign of pleural effusion. No pneumothorax. Bones and soft tissues: No significant findings. IMPRESSION: Unremarkable chest. Dictated by: Adam Graham MD @ 06/05/2021 19:53:46 (Electronically Signed)
[2021-06-05 20:19] LABS: CORONAVIRUS COVID-19 NAA POSITIVE (NEGATIVE); INFLUENZA A NAA NEGATIVE (NEGATIVE); INFLUENZA B NAA NEGATIVE (NEGATIVE)
== END 2021-06-05 21:45 | disposition home or self-care (01) ==
LOC: MW.ED 16:59
DX: U07.1 COVID-19 (principal)
CPT/HCPCS: 0240U; 71045; 99283; A9270

== ENCOUNTER 2022-06-16 23:18 | Emergency (ER) | payer MEDICAID ==
[2022-06-16] MEDS ORDERED: Sodium Chloride 0.9% 1,000 ML IV ONE ×2 (23:20→23:36)
[2022-06-16] MEDS ORDERED: Ondansetron 4 MG/2 ML SDV IVPUSH ONE (23:20)
[2022-06-16] MEDS ORDERED: LORazepam 2 MG/ML SDV IVPUSH ONE (23:20)
[2022-06-16 23:35] VITALS: BP 156/98
[2022-06-17 00:11] LABS: POTASSIUM,K 3.6 mmol/L (3.5-5.1)
[2022-06-17 01:35] VITALS: PULSE 112
== END 2022-06-17 01:34 | disposition home or self-care (01) ==
LOC: MW.ED 23:18
DX: E86.0 Dehydration (principal); F41.9 Anxiety disorder, unspecified; F10.10 Alcohol abuse, uncomplicated; F12.10 Cannabis abuse, uncomplicated
CPT/HCPCS: 36415; 80053; 80305; 80307; 83735; 84443; 84484; 85025; 93005; 96361; 96374; 96375; 99284; J2060; J2405; J7030; 93010

== ENCOUNTER 2023-09-01 16:38 | Emergency (ER) | payer MEDICAID ==
[2023-09-01] MEDS: Sodium Chloride 0.9% 10 ML Syringe FLUSH PRN (16:53)
[2023-09-01] MEDS: Ondansetron 4 MG/2 ML SDV IVPUSH ONE (16:53)
[2023-09-01] MEDS: Sodium Chloride 0.9% 2.5 ML Syringe FLUSH PRN (16:53)
[2023-09-01] MEDS: Sodium Chloride 0.9% 1,000 ML IV STA (16:56)
[2023-09-01 16:59] LABS: BASOPHILS ABSOLUTE AUTO 0.09 K/uL (0.00-0.20); BASOPHILS PERCENT AUTO 0.9 % (0.0-1.0); EOSINOPHILS ABSOLUTE AUTO 0.08 K/uL (0.00-0.45); EOSINOPHILS PERCENT AUTO 0.8 % (0.0-6.0); HEMOGLOBIN 16.1 g/dL (14.0-18.0); IMMATURE GRAN ABSOLUTE AUTO 0.03 K/uL (0.00-0.05); IMMATURE GRAN PERCENT AUTO 0.3 % (0.0-0.4); LYMPHOCYTES ABSOLUTE AUTO 3.62 K/uL (1.00-4.80); LYMPHOCYTES PERCENT AUTO 34.8 % (24.0-44.0); MEAN CORPUSCULAR HEMOGLOBIN 30.1 pg (28.0-32.0); MEAN PLATELET VOLUME 9.4 fL (9.4-12.4); MONOCYTES PERCENT AUTO 7.7 % (0.0-8.0); NEUTROPHILS ABSOLUTE AUTO 5.77 K/uL (1.80-7.70); NEUTROPHILS PERCENT AUTO 55.5 % (41.0-71.0); PLATELET COUNT,PLT 247 K/uL (150-400); RED BLOOD CELL COUNT 5.35 M/uL (4.52-5.90); WHITE BLOOD CELL COUNT,WBC 10.39 K/uL (3.9-11.3)
[2023-09-01] MEDS: LORazepam 1 MG Tab PO ONE (17:24)
[2023-09-01 17:36] LABS: ALANINE AMINOTRANSFERASE,ALT 40 IU/L (14-63); ALBUMIN 4.3 g/dL (3.4-5.0); ALKALINE PHOSPHATASE 90 U/L (46-116); ASPARTATE AMNIOTRANSFERASE,AST 21 IU/L (15-37); BILIRUBIN TOTAL 0.3 mg/dL (0.2-1.0); BLOOD UREA NITROGEN,BUN 10 mg/dL (7.0-18.0); CALCIUM 9.3 mg/dL (8.5-10.1); CARBON DIOXIDE,CO2 24.8 mmol/L (21.0-32.0); CHLORIDE,CL 101 mmol/L (98-107); CREATININE 1.1 mg/dL (0.8-1.3); EST CRCL DRUG DOSING (CG) 104.84 mL/min; GLUCOSE RANDOM 118 mg/dL (74-106); MAGNESIUM 1.6 mg/dL (1.8-2.4); POTASSIUM,K 3.3 mmol/L (3.5-5.1); PROTEIN TOTAL,TP 8.8 g/dL (6.4-8.2); SODIUM,NA 138 mmol/L (136-148)
[2023-09-01 17:39] LABS: ESTIMATED GFR 91 mL/min (>60)
[2023-09-01 17:58] LABS: TSH ULTRASENSITIVE 3.11 uIU/mL (0.36-3.74)
[2023-09-01] MEDS: Potassium Chloride 20 MEQ Tab.ER PO ONE (18:24)
[2023-09-01] MEDS: Magnesium Sulfate/Water 2 GM in Premix Bag 1 BAG IV ONE (18:25)
[2023-09-01 20:09] VITALS: BP 121/64; PULSE 94
== END 2023-09-01 20:09 | disposition home or self-care (01) ==
LOC: MW.ED 16:38
DX: R00.2 Palpitations (principal); E87.6 Hypokalemia; Z88.0 Allergy status to penicillin
CPT/HCPCS: 36415; 71045; 80053; 80307; 83735; 84443; 84484; 85025; 85379; 93005; 96365; 96366; 96375; 99285; A9270; J2405; J3475; J3490; J7030; 93010; 99284

== ENCOUNTER 2024-07-05 12:18 | Emergency (ER) | payer MEDICAID ==
[2024-07-05] MEDS: Ketorolac 30 MG/ML SDV IM ONE (15:26)
[2024-07-05] MEDS: Acetaminophen/oxyCODONE 325-10 MG Tab PO ONE (15:26)
[2024-07-05 16:33] VITALS: BP 157/81; PULSE 85
== END 2024-07-05 16:31 | disposition home or self-care (01) ==
LOC: MW.ED 12:18
DX: M54.41 Lumbago with sciatica, right side (principal); M54.42 Lumbago with sciatica, left side; Z88.0 Allergy status to penicillin; Z79.899 Other long term (current) drug therapy; Z75.8 Other problems related to medical facilities and other health care
CPT/HCPCS: 72131; 72192; 96372; 99283; A9270; J1885; 99284